=== PATIENT | male | born 1980 | race African-American/Black ===

== ENCOUNTER 2021-09-15 00:42 | Emergency (ER) | payer OTHER ==
[~2021-09-15] VITALS: Ht 185.4 cm; Wt 95.3 kg
[2021-09-15 06:55] LABS: ABSOLUTE LYMPHOCYTES 0.4 thou/uL (0.8-5.3); ABSOLUTE MONOCYTES 0.7 thou/uL (0.0-1.2); ABSOLUTE NEUTROPHILS 5.3 thou/uL (1.6-8.1); BASOPHILS 0.3 %; EOSINOPHILS 0.1 %; HEMATOCRIT 42.9 % (42.0-52.0); HEMOGLOBIN 14.4 gm/dL (14.0-18.0); LYMPHOCYTES 6.9 %; MCH 30.3 pg (26.0-34.0); MCHC 33.6 g/dL (28.0-37.0); MCV 90.3 fL (80.0-100.0); MONOCYTES 10.4 %; MPV 7.4 fl. (7.2-11.1); NUCLEATED RBCS 0 /100WBC; PLATELET COUNT* 278 thou/uL (150-400); POLYS 82.3 %; RBC 4.75 mil/uL (4.50-6.00); WBC 6.4 thou/uL (4.0-11.0)
[2021-09-15 07:10] LABS: CALCIUM 8.7 mg/dL (8.5-10.1); CREATININE 1.1 mg/dL (0.6-1.3); POTASSIUM 3.9 mmol/L (3.5-5.1)
[2021-09-15 07:20] LABS: TOTAL BILIRUBIN 0.4 mg/dL (<0.1-1.0); TOTAL PROTEIN 7.7 g/dL (6.4-8.2)
[2021-09-15 08:16] VITALS: BP 105/72
--- NOTE | 2021-09-15 10:07 | EKG ---
[place] [address] ELECTROCARDIOGRAM REPORT Name: OCTAVIOJANICEN Room: [facility]#: [id number] Admission: 09/15/21 Attend Phys: Discharge: 09/15/21 Date of : 80 Date of Service: 09/15/21 0639 Report #: [id number] THIS REPORT FOR: //name// [facility] ED Test Date: 2021-09-15 Test Time: 06:39:54 Pat Name: ALESHA CUNNINGHAM Department: Room: Gender: Inspector Wreath: ROSA : 1980 Requested By: Leighann Sandoval Order Number: [id number] MD: Dominick Ralph Measurements Intervals [place] Rate: 99 P: 44 DC: 149 QRS: 9 QRSD: 97 T: -1 QT: 323 QTc: 415 Interpretive Statements Sinus rhythm Probable left atrial enlargement Low voltage, precordial leads RSR' in V1 or V2, probably normal variant Borderline T abnormalities, inferior leads No previous ECG available for comparison Electronically Signed On 09-15-2021 10:06:49 CABLE PULL[employer] by Dominick Ralph [email or web address] <ELECTRONICALLY SIGNED> By: Dominick Ralph MD, [facility] 09/15/21 1006 0639 0639 Dominick Ralph MD, [facility] /EPI
== END 2021-09-15 08:18 | disposition home or self-care (01) ==
LOC: M.ERS 00:42
PROVIDERS: Personal Emergency Response Attendant
DX: M54.2 Cervicalgia (principal); R55 Syncope and collapse